=== PATIENT | female | born 1980 | race Caucasian/White ===

== ENCOUNTER 2023-07-20 08:30 | Emergency (ER) | payer OTHER, SELFPAY ==
[2023-07-20] VITALS (18 sets, daily range): BP systolic 120–165; BP diastolic 74–79; PULSE 67–87; RESP 10–25; TEMP 36.8; O2SAT 96–99; BMI 35.8
--- NOTE | 2023-07-20 09:04 | XR_ITS ---
[facility] [id number] Patient Name: COSTA ODONNELL MRN: [id number] date: 1980 Sex: F Assigned Patient Location: ER Current Patient Location: ER Accession/Order Number: [id number] Exam Date: 07/20/2023 09:35 Report Date: 07/20/2023 09:56 At the request of: SAVANNAH KEANE Procedure: XR acute abdomen series EXAM: XR acute abdomen series HISTORY: abd pain COMPARISON: None TECHNIQUE: PA view of the chest was obtained. Supine and upright views of the abdomen were obtained. FINDINGS: Heart and mediastinal contours are unremarkable in appearance. No acute infiltrate or consolidations are seen. Slight convexity of the dorsal spine to the right. There is air seen in large and small bowel loops. No bowel obstruction. No evidence of free intraperitoneal air. There is retained feces in the colon with overall mild to moderately increased fecal load, correlate for constipation. Mild degenerative changes in the lumbar spine. Mild degenerative change about the hip joints. A few small calcifications overlying the pelvis compatible with phleboliths. XR/XR acute abdomen series IMPRESSION: No acute process seen in the chest. Correlate for constipation as described. Electronically authenticated by: ALEXX ROMAN Date: 07/20/2023 09:56
--- NOTE | 2023-07-20 09:05 | ED_ITS ---
HPI - General Adult General Chief complaint: Abdominal Pain Stated complaint: CHEST PAIN Time Seen by Provider: 07/20/23 08:56 Source: patient Mode of arrival: walk-in Limitations: no limitations History of Present Illness HPI narrative: Patient is a 42-year-old female who is presenting to the ER today with chief complaint of abdominal tightness going across her upper abdomen bilateral, and wrapping to her bilateral upper and lateral abdominal/chest wall. Patient has no nausea, she has no chest pain, no shortness of breath, but when she takes a deep breath, twist, turns, sneezes or yawns, she feels a pulling sensation to the muscle wall of her upper abdomen. Patient has had no significant symptoms of diarrhea or constipation, no urinary complaints. Patient works locally, she works as a investment banking analyst. Patient left work to come to the ER today. Patient has no other acute complaints at this time. All systems are negative except as noted/marked. All systems reviewed and otherwise negative. Nurses note and vital signs reviewed and patient is not hypoxic. General: The patient appears well and in no apparent distress. Patient is resting comfortably on cart. Patient is not toxic, lethargic, or listless Skin: Warm, dry, no pallor noted. There is no rash noted. No petechiae, purpura. Head: Normocephalic, atraumatic Eye: Normal conjunctiva, no drainage, EOMI. PERRL Ears, Nose, Mouth, and Throat: oral mucosa is moist. Nares patent. Mouth without vesicles. Cardiovascular: Regular Rate and Rhythm, no murmur, gallop, rub; patient has no reproducible tenderness palpation to bilateral anterior, lateral or posterior chest wall. Respiratory: Patient is in no distress, no accessory muscle use, lungs are clear to auscultation, no wheezing, rales or rhonchi Back: non-tender, no CVA tenderness bilaterally to percussion. No CT LS midline pain GI: Patient mild to moderate reproducible tenderness to palpation to the right and left upper quadrant. Patient has mild midepigastric tenderness palpation, she has no rash. Patient has no pain that is reproducible to bilateral chest wall laterally. Patient abdomen is soft, no peritoneal signs. No lower flank pain bilateral, no suprapubic tenderness palpation bilateral. No tenderness to palpation, no masses appreciated. No rebound, guarding, or rigidity noted. No distention Musculoskeletal: Patient has full range of motion of all of the extremities, no motor, sensory, or focal neurological deficits Neurological: A&O x4, normal speech Psychiatric: Cooperative Related Data Previous Rx's Medication Instructions Recorded dicyclomine 20 mg tablet 20 mg PO TID PRN abdominal pain #7 07/20/23 tabs ondansetron 4 mg disintegrating 4 mg PO Q4H PRN nausea and 07/20/23 tablet vomiting 3 days #6 tabs Allergies Allergy/AdvReac Type Severity Reaction Status Date / Time chlorhexidine Allergy Unknown Verified 07/20/23 08:44 doxycycline [From Vibramycin] Allergy Unknown Verified 07/20/23 08:44 fosinopril [From Monopril] Allergy Unknown Verified 07/20/23 08:44 hydromorphone [From Dilaudid] Allergy Unknown Verified 07/20/23 08:44 morphine Allergy Unknown Verified 07/20/23 08:44 nalbuphine [From Nubain] Allergy Unknown Verified 07/20/23 08:44 nitrofurantoin Allergy Unknown Verified 07/20/23 08:44 [From Macrobid] tramadol [From Ultram] Allergy Unknown Verified 07/20/23 08:44 Exam Constitutional Vital Signs, click to edit/add: Last Vital Signs Temp 98.2 F 07/20/23 08:38 Pulse 87 07/20/23 10:50 Resp 24 07/20/23 10:50 BP 122/78 07/20/23 10:30 Pulse Ox 96 07/20/23 10:50 O2 Del Method Room Air 07/20/23 08:38 Course Vital Signs Vital signs: Vital Signs Temperature 98.2 F 07/20/23 08:38 Pulse Rate 71 07/20/23 08:38 Respiratory Rate 20 07/20/23 08:38 Blood Pressure 165/74 H 07/20/23 08:38 Pulse Oximetry 99 07/20/23 08:38 Oxygen Delivery Method Room Air 07/20/23 08:38 Temperature 98.2 F 07/20/23 08:38 Pulse Rate 87 07/20/23 10:50 Respiratory Rate 24 07/20/23 10:50 Blood Pressure 122/78 07/20/23 10:30 Pulse Oximetry 96 07/20/23 10:50 Oxygen Delivery Method Room Air 07/20/23 08:38 Medical Decision Making MDM Narrative Medical decision making narrative: Patient was given 1 L of IV fluid. Patient was also given Zofran. Patient lab work shows no significant changes, patient's x-ray shows no other acute findings, constipation suggested. Patient is currently having financial issues, she stated that she needed her last paycheck to help pay for groceries and gas, she will be getting paid again on the and will be able to get her diabetic medication, test strips, and diabetic care in the pharmacy at that time. Patient does have prescription sitting there. Patient understands her blood sugar is elevated. Patient will follow-up with her PCP as well, no questions at discharge. Patient given a work note Lab Data Labs: Lab Results 07/20/23 07/20/23 07/20/23 Range/Units 09:08 09:21 09:56 WBC 7.1 (4.0-11.0) 10^3/uL RBC 4.85 (4.20-5.40) 10^6/uL Hgb 13.9 (12.0-16.0) g/dL Hct 42.3 (36.0-48.0) % MCV 87.2 (81.0-99.0) fL MCH 28.7 (26.7-34.0) pg MCHC 32.9 (29.9-35.2) g/dL RDW 12.2 (11.0-15.0) % Plt Count 219 (150-450) 10^3/uL MPV 10.2 (9.5-13.5) fL Neut % (Auto) 60.9 (43.0-75.0) % Lymph % (Auto) 31.1 (20.5-60.0) % [place] % (Auto) 6.3 (1.7-12.0) % Eos % (Auto) 0.8 L (0.9-7.0) % Baso % (Auto) 0.6 (0.2-2.0) % Neut # (Auto) 4.3 (1.4-6.5) 10^3/uL Lymph # (Auto) 2.2 (1.2-3.8) 10^3/uL [place] # (Auto) 0.5 (0.3-0.8) 10^3/uL Eos # (Auto) 0.1 (0.0-0.7) 10^3/uL Baso # (Auto) 0.0 (0.0-0.1) 10^3/uL Abs Immat Gran (auto) 0.02 (0.00-0.03) 10^3/uL Imm/Tot Granulo (auto) 0.3 (0.0-0.5) % VBG pH 7.440 H (7.330-7.430) VBG pCO2 36.2 L (40.0-52.0) mmHg Sodium 136 (136-145) mmol/L Potassium 4.2 (3.5-5.1) mmol/L Chloride 99 (98-107) mmol/L Carbon Dioxide 24.6 (21.0-32.0) mmol/L Anion Gap 16.6 BUN 13.0 (7.0-18.0) mg/dL Creatinine 0.67 (0.55-1.02) mg/dL Est GFR ( Amer) >60 (>=60) Est GFR (Non-Af Amer) >60 (>=60) BUN/Creatinine Ratio 19.4 Glucose 357 H (74-106) mg/dL Calcium 8.8 (8.5-10.1) mg/dL Total Bilirubin 0.9 (0.2-1.0) mg/dL AST 18 (15-37) U/L ALT 31 (14-59) U/L Alkaline Phosphatase 100 (46-116) U/L Troponin I High Sens <4.0 L (4.0-51.3) pg/mL Total Protein 7.5 (6.4-8.2) g/dL Albumin 3.1 L (3.4-5.0) g/dL Globulin 4.4 g/dL Albumin/Globulin Ratio 0.7 Lipase 25.0 (16.0-77.0) U/L Urine Color (YELLOW) Urine Clarity (CLEAR) Urine pH (5.0-9.0) Ur Specific [place] (1.005-1.025) Urine Protein (NEG/TRACE) mg/dL Urine Glucose (UA) (NEGATIVE) mg/dL Urine Ketones (NEGATIVE) mg/dL Urine Occult Blood (NEGATIVE) Urine Nitrite (NEGATIVE) Urine Bilirubin (NEGATIVE) Urine Urobilinogen (0.2-1.0) EU/dL Ur Leukocyte Esterase (NEGATIVE) Urine RBC (0-2) #/HPF Urine WBC (NONE SEEN) #/HPF Ur Squamous Epith Cells (NONE/RARE) #/LPF Urine Crystals (None Seen) #/HPF Urine Bacteria (NONE SEEN) #/HPF Urine Casts (NONE SEEN) #/LPF Urine Mucus (NONE SEEN) Acetone, Qual Negative (NEGATIVE) POC Glucose 344 H (74-106) mg/dL 07/20/23 Range/Units 11:06 WBC (4.0-11.0) 10^3/uL RBC (4.20-5.40) 10^6/uL Hgb (12.0-16.0) g/dL Hct (36.0-48.0) % MCV (81.0-99.0) fL MCH (26.7-34.0) pg MCHC (29.9-35.2) g/dL RDW (11.0-15.0) % Plt Count (150-450) 10^3/uL MPV (9.5-13.5) fL Neut % (Auto) (43.0-75.0) % Lymph % (Auto) (20.5-60.0) % [place] % (Auto) (1.7-12.0) % Eos % (Auto) (0.9-7.0) % Baso % (Auto) (0.2-2.0) % Neut # (Auto) (1.4-6.5) 10^3/uL Lymph # (Auto) (1.2-3.8) 10^3/uL [place] # (Auto) (0.3-0.8) 10^3/uL Eos # (Auto) (0.0-0.7) 10^3/uL Baso # (Auto) (0.0-0.1) 10^3/uL Abs Immat Gran (auto) (0.00-0.03) 10^3/uL Imm/Tot Granulo (auto) (0.0-0.5) % VBG pH (7.330-7.430) VBG pCO2 (40.0-52.0) mmHg Sodium (136-145) mmol/L Potassium (3.5-5.1) mmol/L Chloride (98-107) mmol/L Carbon Dioxide (21.0-32.0) mmol/L Anion Gap BUN (7.0-18.0) mg/dL Creatinine (0.55-1.02) mg/dL Est GFR ( Amer) (>=60) Est GFR (Non-Af Amer) (>=60) BUN/Creatinine Ratio Glucose (74-106) mg/dL Calcium (8.5-10.1) mg/dL Total Bilirubin (0.2-1.0) mg/dL AST (15-37) U/L ALT (14-59) U/L Alkaline Phosphatase (46-116) U/L Troponin I High Sens (4.0-51.3) pg/mL Total Protein (6.4-8.2) g/dL Albumin (3.4-5.0) g/dL Globulin g/dL Albumin/Globulin Ratio Lipase (16.0-77.0) U/L Urine Color Lt. yellow (YELLOW) Urine Clarity Clear (CLEAR) Urine pH 6.0 (5.0-9.0) Ur Specific [place] 1.010 (1.005-1.025) Urine Protein Negative (NEG/TRACE) mg/dL Urine Glucose (UA) >=1000 A (NEGATIVE) mg/dL Urine Ketones Negative (NEGATIVE) mg/dL Urine Occult Blood Negative (NEGATIVE) Urine Nitrite Negative (NEGATIVE) Urine Bilirubin Negative (NEGATIVE) Urine Urobilinogen 0.2 (0.2-1.0) EU/dL Ur Leukocyte Esterase Negative (NEGATIVE) Urine RBC 0-2 (0-2) #/HPF Urine WBC 2-5 A (NONE SEEN) #/HPF Ur Squamous Epith Cells Few A (NONE/RARE) #/LPF Urine Crystals None seen (None Seen) #/HPF Urine Bacteria Trace A (NONE SEEN) #/HPF Urine Casts None seen (NONE SEEN) #/LPF Urine Mucus None seen (NONE SEEN) Acetone, Qual (NEGATIVE) POC Glucose (74-106) mg/dL ECG Data Attestation: I personally reviewed and interpreted this ECG as follows: (EKG interpretation. Baseline normal sinus rhythm at 73 beats a minute. Normal axis deviation. No acute ST elevation, no acute ectopy. QTc of 385.) Discharge Plan Discharge Stand Alone Forms: Work/School Release, Portal Instructions Chief Complaint: Abdominal Pain Clinical Impression: Abdominal wall pain, Abdominal pain, Constipation Patient Disposition: Home, Self-Care Time of Disposition Decision: 12:00 Condition: Fair Prescriptions / Home Meds: New dicyclomine 20 mg tablet 20 mg PO TID PRN (Reason: abdominal pain) Qty: 7 0RF ondansetron 4 mg tablet,disintegrating 4 mg PO Q4H PRN (Reason: nausea and vomiting) 3 Days Qty: 6 0RF Instructions: Constipation (ED), Muscle Strain (ED), Abdominal Pain (ED) Additional Instructions: Use MiraLAX twice a day for the next 2 or 3 days to help with bowel movements. Use 1 or 2 bottles of magnesium citrate today or tomorrow if needed to help with bowel movements. If you see diarrhea first, do not stop your bowel regimen, the watery diarrhea can go around the stool, x-ray shows constipation. A copy of the x-ray report was given to you. Referrals: Physician,Non-Staff, MD [Primary Care Provider] - 1 week
[2023-07-20] MEDS: 0.9 % SODIUM CHLORIDE 1,000 ML 999 ML IV (09:15)
[2023-07-20] MEDS: ONDANSETRON PF 4 MG/2 ML VIAL IV (09:15)
[2023-07-20] MEDS: DICYCLOMINE HCL 20 MG/2 ML VIAL IM (09:15)
[2023-07-20 09:22] LABS: Glucometer 344 mg/dL (74-106)
[2023-07-20 09:23] LABS: Basophils Percent Auto 0.6 % (0.2-2.0); Eosinophils Absolute Auto 0.1 10^3/uL (0.0-0.7); Eosinophils Percent Auto 0.8 % (0.9-7.0); Hematocrit 42.3 % (36.0-48.0); Hemoglobin 13.9 g/dL (12.0-16.0); Immature Granulocytes Abs Auto 0.02 10^3/uL (0.00-0.03); Immature Granulocytes Pct Auto 0.3 % (0.0-0.5); Lymphocytes Absolute Auto 2.2 10^3/uL (1.2-3.8); Lymphocytes Percent Auto 31.1 % (20.5-60.0); Mean Corpuscular HGB Conc 32.9 g/dL (29.9-35.2); Mean Corpuscular Hemoglobin 28.7 pg (26.7-34.0); Mean Corpuscular Volume 87.2 fL (81.0-99.0); Mean Platelet Volume 10.2 fL (9.5-13.5); Monocytes Absolute Auto 0.5 10^3/uL (0.3-0.8); Monocytes Percent Auto 6.3 % (1.7-12.0); Neutrophils Absolute Auto 4.3 10^3/uL (1.4-6.5); Neutrophils Percent Auto 60.9 % (43.0-75.0); Platelet Count 219 10^3/uL (150-450); Red Blood Count 4.85 10^6/uL (4.20-5.40); Red Cell Distribution Width 12.2 % (11.0-15.0); White Blood Count 7.1 10^3/uL (4.0-11.0)
[2023-07-20 09:38] LABS: Acetone NEGATIVE (NEGATIVE)
[2023-07-20 09:43] LABS: Alanine Aminotransferase 31 U/L (14-59); Albumin Globulin Ratio 0.7; Albumin Level 3.1 g/dL (3.4-5.0); Alkaline Phosphatase 100 U/L (46-116); Anion Gap 16.6; Aspartate Amino Transferase 18 U/L (15-37); BUN Creatinine Ratio 19.4; Bilirubin Total 0.9 mg/dL (0.2-1.0); Calcium 8.8 mg/dL (8.5-10.1); Carbon Dioxide 24.6 mmol/L (21.0-32.0); Chloride 99 mmol/L (98-107); Estimated GFR (African America >60 (>=60); Estimated GFR (Non-African Ame >60 (>=60); Globulin 4.4 g/dL; Glucose 357 mg/dL (74-106); Potassium 4.2 mmol/L (3.5-5.1); Sodium 136 mmol/L (136-145); Total Protein 7.5 g/dL (6.4-8.2)
[2023-07-20 09:45] LABS: Troponin I High Sensitivity <4.0 pg/mL (4.0-51.3)
--- NOTE | 2023-07-20 09:51 | ECG_ITS ---
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
[2023-07-20 10:01] LABS: PCO2 VBG 36.2 mmHg (40.0-52.0)
[2023-07-20 11:15] LABS: Bilirubin Urine NEGATIVE (NEGATIVE); Blood Urine NEGATIVE (NEGATIVE); Clarity Urine CLEAR (CLEAR); Color Urine LT. YELLOW (YELLOW); Glucose Urine UA >=1000 mg/dL (NEGATIVE); Ketones Urine NEGATIVE (NEGATIVE); Leukocyte Esterase Urine NEGATIVE (NEGATIVE); Nitrite Urine NEGATIVE (NEGATIVE); Protein Urine NEGATIVE (NEG/TRACE); Urobilinogen Urine 0.2 EU/dL (0.2-1.0)
[2023-07-20 11:21] LABS: Bacteria Urine TRACE #/HPF (NONE SEEN); Cast Seen? NONE SEEN #/LPF (NONE SEEN); Crystals Seen? None Seen #/HPF (None Seen); Mucus Urine NONE SEEN (NONE SEEN); RBC Urine 0-2 #/HPF (0-2); Squamous Epithelial Cell Urine FEW #/LPF (NONE/RARE)
== END 2023-07-20 12:19 | disposition home or self-care (01) ==
PROVIDERS: Emergency Provider Emergency Medicine
DX: R10.9 Unspecified abdominal pain (principal); K59.00 Constipation, unspecified
CPT/HCPCS: 36415; 74022; 80053; 81001; 82009; 82800; 82948; 83690; 84484; 85025; 93005; 96372; 96374; 99285; J0500